=== PATIENT | female | born 1975 | race Caucasian/White ===

== ENCOUNTER 2017-11-23 05:29 | Outpatient (CLI) | payer MEDICAID ==
[~2017-11-23] VITALS: Ht 157.5 cm; Wt 95.3 kg
[~2017-11-23 05:29] MED LIST: AZIT-21 PO; AZIT250T PO; CLIN300C3 PO; NAPR-243 PO; PHEN37.53; PRD20T PO; PROP1TAB2; SULF1TAB38 PO; TRM50T PO
[2017-11-23] MEDS ORDERED: BUPR150T9 PO (10:03)
[2017-11-23] MEDS ORDERED: BUPR300T43 PO (10:03)
[2017-11-23] MEDS ORDERED: AMIT50TA3 PO (10:07)
[2017-11-23] MEDS ORDERED: POLY119P5 PO (10:17)
[2017-11-23] MEDS ORDERED: BUPR150T7 PO (10:17)
== END 2017-11-23 10:55 ==
LOC: PREOP 05:29
PROVIDERS: ATTEND Obstetrics & Gynecology
DX: Z01.818 Encounter for other preprocedural examination (principal); N39.3 Stress incontinence (female) (male); N81.10 Cystocele, unspecified; N93.8 Other specified abnormal uterine and vaginal bleeding; D64.9 Anemia, unspecified

== ENCOUNTER 2017-12-22 06:07 | Day surgery (SDC) | payer MEDICAID ==
--- NOTE | 2017-12-21 12:19 | HISTORY AND PHYSICAL ---
DATE OF SERVICE: PREOPERATIVE HISTORY AND PHYSICAL HISTORY OF PRESENT ILLNESS: The patient is a 41-year-old G4, P4 with menses occurring every two to three weeks. She has progressive stress urinary incontinence and a sensation of something falling down and out of her vagina. Exam on 10/24/2017 was consistent with fairly significant pelvic relaxation as well as an enlarged uterus. She elected to consider for definitive surgery and that has now been planned and scheduled for 12/22/2017. Intended surgery is total laparoscopic hysterectomy with bilateral salpingectomy as well as anterior and posterior vaginal repairs with Dr. Gerard to perform a pubovaginal sling and cystoscopy concurrent with my portion of the surgery. Surgical risks, complication, recovery and follow up have all been fully discussed. ALLERGIES: None. MEDICATIONS: Wellbutrin and amitriptyline. PAST SURGICAL HISTORY: Includes a LEEP procedure in 1996 a hernia repair in 1999 and a cholecystectomy in 2003. PAST OBSTETRICAL HISTORY: Includes vaginal deliveries in 1992, 1998, 2001 and 2004. GYNECOLOGICAL HISTORY: Includes a menstrual formula of 12/regular, although currently now q.2 weeks. CONTRACEPTION: None. Last Pap smear was 08/2017 was normal. FAMILY HISTORY: Significant for breast cancer in a maternal aunt. There are no other CLEARING HAND cancers. Both sides of the patient's family have diabetes and hypertension. SOCIAL HISTORY: The patient is . She works at [employer]. She smokes a pack of cigarettes a day. She denies drug use. Has had a history of drinking socially and has had a history of HPV. REVIEW OF SYSTEMS: As per the HPI. In addition, the patient has some degree of mitral valve prolapse and some early stage emphysema. She also has psychiatric issues at times with depression and anxiety that are controlled with her medication. PHYSICAL EXAMINATION: VITAL SIGNS: The patient's height is 6 feet 2 inches, weight was 207 pounds, BMI was 37. GENERAL: The patient is well-developed, well-nourished, white female in no acute distress. HEENT: Normal. NECK: Supple. No lymphadenopathy, no thyromegaly. ABDOMEN: Soft, nontender, nondistended. EXTREMITIES: Show no clubbing or cyanosis. There is no Homans sign. PELVIC: Exam is deferred to the operating room. Clinical exam show a first to second-degree cystocele, a first to second-degree rectocele and first-degree uterine prolapse that easily progresses to a second degree with Valsalva. The uterus was 8 to 10 weeks in size on the previous exam. IMPRESSION AND PLAN: Dysfunctional uterine bleeding, menorrhagia and a history of symptomatic progressive uterine vaginal prolapse with stress urinary incontinence. In addition, the patient no longer desired fertility. The patient has elected for definitive surgery in the form of total laparoscopic hysterectomy with bilateral salpingectomies as well as anterior and posterior vaginal repairs likely with an enterocele repair as well as pubovaginal sling and cystoscopy by Dr. Gerard. Again, surgical risks, complication, recovery and follow up have been fully discussed. The patient's questions have been answered and she is scheduled for the surgery on 12/22/2017. Job ID: [id number] DocumentID: [id number] Dictated Date: 12/21/2017 10:43:23 Poultry Process Worker Date: 12/21/2017 12:19:05 Dictated By: ELOISA PULLIAM MD
[~2017-12-22] VITALS: Ht 157.5 cm; Wt 95.3 kg
[~2017-12-22 06:07] MED LIST changes: +AMIT50TA3 PO; +BUPR150T7 PO; +BUPR150T9 PO; +BUPR300T43 PO; +POLY119P5 PO
[2017-12-22] MEDS: LACTATED RINGERS 1,000 ML IV PRN ×3 (06:30→10:32)
[2017-12-22] MEDS ORDERED: ceFAZolin 1,000 MG (ANCEF) VIAL ONE (06:44)
[2017-12-22] MEDS ORDERED: NS (IVPB) 50 ML ONE (06:44)
[2017-12-22 06:50] LABS: BASOPHILS # (AUTO) 0.1 10^3/uL (0.0-0.1); BASOPHILS % (AUTO) 1 % (0-10); EOSINOPHILS # (AUTO) 0.3 10^3/uL (0.0-0.3); EOSINOPHILS % (AUTO) 3 % (0-10); HEMATOCRIT 40 % (35-52); HEMOGLOBIN 14.1 G/DL (11.5-16.0); LYMPHOCYTES # (AUTO) 3.7 X 10^3 (1.0-4.0); LYMPHOCYTES % (AUTO) 43 % (12-44); MEAN CORPUSCULAR HEMOGLOBIN 33 PG (25-34); MEAN CORPUSCULAR HGB CONC 35 G/DL (32-36); MEAN CORPUSCULAR VOLUME 93 FL (80-99); MEAN PLATELET VOLUME 9.3 FL (7.4-10.4); MONOCYTES # (AUTO) 0.7 X 10^3 (0.0-1.0); MONOCYTES % (AUTO) 8 % (0-12); NEUTROPHILS % (AUTO) 46 % (42-75); PLATELET COUNT 272 10^3/uL (130-400); RED CELL DISTRIBUTION WIDTH 13.6 % (10.0-14.5); WHITE BLOOD COUNT 8.6 10^3/uL (4.3-11.0)
[2017-12-22] MEDS ORDERED: MIDAZOLAM 2 MG/2 ML (VERSED) VIAL ONE (06:51)
[2017-12-22] MEDS ORDERED: fentaNYL INJECTION 250 MCG/5 ML AMP ONE (06:51)
[2017-12-22] MEDS ORDERED: ESTRADIOL VAGINAL CREAM 42.5 GM (ESTRACE) VG ONE (06:56)
[2017-12-22] MEDS ORDERED: BUP/EPI 0.5% 1:200,000 (SENSORCAINE) 30 ML VIAL ONE (06:56)
[2017-12-22] MEDS ORDERED: ceFAZolin INJECTION 1,000 MG in NS (IVPB) 100 ML IV ONE (07:30)
[2017-12-22 07:39] VITALS: BP 104/73
--- NOTE | 2017-12-22 08:01 | Progress Note-Pre Operative ---
Pre-Operative Progress Note H&P Reviewed The H&P was reviewed, patient examined and no changes noted. Date Seen by Provider: Dec 22, 2017 Time Seen by Provider: 08:01 Date H&P Reviewed: Dec 22, 2017 Time H&P Reviewed: 08: Pre-Operative Diagnosis: Dysfunctional uterine bleeding/uterovaginal prolapse/ stress urinary inconti ELOISA PULLIAM MD Dec 22, 2017 8:01 am
--- NOTE | 2017-12-22 08:02 | Progress Note-Post Operative ---
Post-Operative Progess Note Surgeon (s)/Assistant Drafter (s) Surgeon ELOISA PULLIAM MD Assistant Drafter: Tammi Beard Pre-Operative Diagnosis Dysfunctional uterine bleeding/uterovaginal prolapse/stress urinary inconti Post-Operative Diagnosis Same with pathology pending Procedure & Operative Findings Date of Procedure 12/22/17 Procedure Performed/Findings TLH with bilateral salpingectomy as well as anterior and posterior vaginal repair with enterocele repair and with Dr. Swenson performing a pubovaginal sling and cystoscopy Anesthesia Type GETA Estimated Blood Loss Estimated blood loss (mL): 300cc Specimens/Packing Specimens Removed Uterus and fallopian tubes Packing: Kerlix to the vagina ELOISA PULLIAM MD Dec 22, 2017 08:02
[2017-12-22] MEDS ORDERED: PATIENT MAY USE OWN MEDS, ALL MC SCH ×2 (08:15→18:30)
[2017-12-22] MEDS ORDERED: BENZOCAINE/MENTHOL (DERMOPLAST) 56 ML CAN TP PRN (08:15)
[2017-12-22] MEDS ORDERED: ESTROGENS CONJ IV 25 MG/5 ML (PREMARIN) VIAL IVP ONE (08:15)
[2017-12-22] MEDS ORDERED: ONDANSETRON 4 MG/2 ML (SDV) Z0FRAN IVP PRN ×2 (08:15→10:30)
[2017-12-22] MEDS ORDERED: KETOROLAC 30 MG/ML VIAL IVP SCH (08:15)
[2017-12-22] MEDS ORDERED: WATER (STERILE) FOR INJ 10 ML BTL INJ ONE (08:15)
[2017-12-22] MEDS ORDERED: PROMETHAZINE INJ 25 MG/ML (PHENERGAN) AMP IM PRN (08:15)
[2017-12-22] MEDS ORDERED: MEPERIDINE (DEMEROL) INJ 100 MG/ML IM PRN (08:15)
--- NOTE | 2017-12-22 08:49 | Progress Note-Post Operative ---
Post-Operative Progess Note Surgeon (s)/Software Solutions Architect (s) Surgeon MADI LEBRON MD Software Solutions Architect: HERACLIO Pre-Operative Diagnosis DALY Post-Operative Diagnosis SAME Procedure & Operative Findings Date of Procedure 12/22/17 Procedure Performed/Findings PVS AND CYSTO Anesthesia Type GENERAL Estimated Blood Loss Estimated blood loss (mL): NEGLIGIBLE Specimens/Packing Specimens Removed N/A Packing: Kerlix to the vagina MADI LEBRON MD Dec 22, 2017 8:49 am
[2017-12-22] MEDS ORDERED: ROCURONIUM 10 MG/ML 5 ML SYRINGE IV ONE (09:41)
[2017-12-22] MEDS ORDERED: proPOfol 200 MG/20 ML (DIPRIVAN) VIAL IV ONE (09:41)
[2017-12-22] MEDS ORDERED: LIDOCAINE JELLY 2% (XYLOCAINE) 5 ML TUBE ONE (09:41)
[2017-12-22] MEDS ORDERED: SEVOFLURANE (ULTANE) 15 ML INHAL SOLN ONE (09:41)
[2017-12-22] MEDS ORDERED: LIDOCAINE PF 2% 5 ML (XYLOCAINE) VIAL ONE (09:41)
[2017-12-22] MEDS ORDERED: morphine INJ 10 MG/ML 1ML (SYR OR VIAL) ONE (10:03)
[2017-12-22] MEDS ORDERED: KETOROLAC 30 MG/ML VIAL ONE (10:11)
[2017-12-22] MEDS ORDERED: MEPERIDINE (DEMEROL) INJ 50 MG/ML ONE (10:12)
[2017-12-22] MEDS: MEPERIDINE (DEMEROL) INJ 50 MG/ML IVP PRN ×2 (10:21→10:30)
[2017-12-22] MEDS: morphine INJ 10 MG/ML 1ML (SYR OR VIAL) IVP PRN ×2 (10:41→10:58)
--- NOTE | 2017-12-22 12:01 | Anesthesia-General Post-Op ---
General Patient Condition Mental Status/LOC: Same as Preop Cardiovascular: Satisfactory Nausea/Vomiting: Absent Respiratory: Satisfactory Pain: Controlled Complications: Absent Post Op Complications Complications None Follow Up Care/Instructions Patient Instructions None needed. Anesthesia/Patient Condition Patient Condition Patient is doing well, no complaints, stable vital signs, no apparent adverse anesthesia problems. No complications reported per nursing. RADHA CARDONA CRNA Dec 22, 2017 12:01
[2017-12-22 12:12] VITALS: BP 118/77
[2017-12-22] MEDS ORDERED: oxyCODONE/APAP 10/325MG (PERCOCET 10) TABLET PO ONE (12:16)
[2017-12-22] MEDS: oxyCODONE/APAP 10/325MG (PERCOCET 10) TABLET PO PRN ×3 (12:31→20:41)
--- NOTE | 2017-12-22 13:12 | OPERATIVE REPORT ---
DATE OF SERVICE: 12/22/2017 PREOPERATIVE DIAGNOSIS: On my part, stress urinary incontinence. POSTOPERATIVE DIAGNOSIS: On my part, stress urinary incontinence. OPERATION PERFORMED: Pubovaginal sling and cystoscopy. SURGEON: Madi Lebron MD. OYSTER GRADER: Herve Reinoso MD. ANESTHESIA: General. COMPLICATIONS: None. PROCEDURE: Under satisfactory general anesthesia and after Dr. Reinoso performed the first part of his surgery that he will dictate, I inserted a Salas catheter draining clear urine. I passed the Solyx device on both sides using the described technique. The sling was sitting nicely under the mid urethra with no tension and no twist and passage of a curved hemostat easily under it. The catheter was removed and cystoscopy was performed to confirm the integrity of the bladder, ureters and urethra with no foreign body. The bladder was left half full to perform a manual Valsalva maneuver after removing of the cystoscope and it was negative. Catheter was reinserted and Dr. Reinoso proceeded with the rest of his surgery that he will dictate. ESTIMATED BLOOD LOSS ON MY PART: Negligible. Job ID: [id number] DocumentID: [id number] Dictated Date: 12/22/2017 09:45:29 Casting Machine Control Board Operator Date: 12/22/2017 13:12:02 Dictated By: MADI LEBRON MD
--- NOTE | 2017-12-22 13:40 | OPERATIVE REPORT ---
DATE OF SERVICE: 12/22/2017 SURGEON: Herve Reionso MD PREOPERATIVE DIAGNOSES: Dysfunctional uterine bleeding, uterine prolapse and stress urinary incontinence. POSTOPERATIVE DIAGNOSES: Dysfunctional uterine bleeding, uterine prolapse and stress urinary incontinence. OPERATIVE PROCEDURE: Total laparoscopic hysterectomy with bilateral salpingectomies as well as anterior and posterior vaginal repairs with enterocele repair and with Dr. Gerard performing a pubovaginal sling and cystoscopy. OPERATIVE DESCRIPTION: With the patient in the supine position under satisfactory general anesthesia, she was repositioned in the dorsal lithotomy position in the [facility] and prepped and draped in the usual fashion for abdominal and vaginal surgery. Salas catheter was placed in the urinary bladder. A weighted speculum placed in posterior fornix of vagina, cervix exposed and grasped anteriorly with single tooth tenaculum. Uterus was sounded to 12.5 cm with uterine sound. The cervix then serially dilated with Danilo dilators to accommodate a Tere 2 manipulator, which was placed using a 6 mm x 8 cm uterine probe and a 35 mm colpotomy ring. Sutures of #1 Vicryl placed at 3 and 9 o'clock position of the cervix to affix the uterus to the manipulator. The patient was brought in low dorsal lithotomy position. The abdomen exposed. The tenaculum and speculum had been removed from the vagina. A 12 mm incision made 5 cm superior to the umbilicus. Veress needle was placed through the stab wound in the base of the umbilicus. Correct placement confirmed with a water drop test. The abdomen was insufflated with 2.4 liters of carbon dioxide. The Veress needle was removed and a 12 mm Optiview laparoscopic port placed through the upper midline incision. The laparoscope was introduced under direct vision. The abdominal wall was transilluminated. Ports of 8 mm were placed through incisions of those sizes at 9 cm lateral to the umbilicus on each side. The incision sites were all infiltrated with 0.25% Marcaine with epinephrine prior to incision. The instrument manipulator was advanced on the patient and docked. The operative instruments were placed in the right and left lateral ports and I retired to the console. Using a vessel sealer on the right and a bipolar fenestrated grasper on the left, the pelvis was first examined. Both fallopian tubes appeared normal as were the ovaries. The uterus was somewhat large and mottled in appearance consistent with adenomyosis. Both ureters were seemed to peristalse. The laparoscope was rotated. The appendix was identified. It was a normal vermiform appendix. Laparoscope was brought back to the pelvis and the intended surgery was initiated. The right fallopian tube was grasped and elevated. The mesosalpinx was clamped, cauterized and divided with the vessel sealer. This continued stepwise across to the utero-ovarian pedicle. The utero-ovarian pedicle was then divided in the same manner as was the round ligament, the broad ligaments and eventually down onto the cardinal ligament. Same procedure performed on the left. This allowed for both tubes to be removed with the uterus and conserving both ovaries. Again, the ureters were seen peristalsing away from the areas of dissection. The anterior lower uterine segment peritoneum was exposed using a monopolar shear. The peritoneum was divided on the lower uterine segment and the peritoneum was dissected down off the lower uterine segment, taking the bladder with it exposing the anterior vaginal wall over the colpotomy ring. Colpotomy incision was made at the 12 o'clock position and continued circumferentially until the entire colpotomy ring was exposed. The uterus with the fallopian tubes still attached was then extracted through the vagina. The vaginal cuff was closed with two sutures of V-Loc barbed suture starting first on the right angle and continued to the midportion of the cuff and then from the left angle to the midportion of the cuff including the ligation of the uterine vessel pedicles with the initiation of those stitches. Again, both ureters were seemed to peristalse and were away from the areas of stitch placement. The pelvis was irrigated and examined for hemostasis. That being complete, the procedure was terminated. The operative instruments were removed under direct vision as were the ports. The patient was brought out of Trendelenburg. The abdomen was evacuated and insufflating gas and the incision was closed with alie after closing the fascia at the supraumbilical incision with a [id number] suture of 2-0 Vicryl. The patient was repositioned now in the dorsal lithotomy position for the vaginal repairs. The anterior repair was initiated by placing Ovidio clamps on the anterior vaginal wall just distal to the vaginal cuff. The vaginal wall was opened in the midline with Metzenbaum scissors. The vaginal wall was dissected off the muscularis of the vagina back to the pubic rami bilaterally. Three sutures of 2-0 Vicryl were placed plicating the endopelvic fascia and the bladder wall elevating the bladder and lengthening the urethra. Dr. Gerard assumed care of the patient at this point, I remained to assist. Dr. Gerard performed a pubovaginal sling and cystoscopy. I remained to assist. He will dictate his portion of the procedure. Upon completion of Dr. Gerard's portion of procedure, he turned care back over to me for the patient. The redundant anterior vaginal muscularis mucosa was removed sharply. Vaginal wall was closed with a running lock suture of 3-0 Vicryl Rapide. Good support was evident and good hemostasis was affected. The posterior repair was now performed by placing Ovidio clamps on the perineum and the hymenal ring at 5 and 7 o'clock position. The inverted triangle of skin removed from the perineal body and an upright triangle from the posterior vaginal floor. The rectovaginal space was entered sharply and dissected bluntly to the apex of the vagina. Oxbow retractor was placed anterior and Terrell retractor posteriorly. There was an enterocele at the apex. It was reduced and plicated with 2-0 Vicryl pursestring suture. The rectovaginal space was then obliterated with additional sutures of 2-0 Vicryl and the perineal body was restored with sutures of 2-0 Vicryl as well. Redundant posterior vaginal muscularis mucosa was removed sharply. The vaginal wall was closed with a running locked suture of 3-0 Vicryl Rapide. Good support was evident and good hemostasis was achieved. A digital rectal exam confirmed. No stricture or stenosis of the rectum and no sutures into or through the rectal mucosa. The vagina was now filled with an Estrace vaginal cream and a pack of Kerlix gauze was placed. A Salas catheter was left to dependent drainage with Dr. Gerard and placed upon completion of this portion of the surgery. Sponge and needle counts were correct at the end of the procedure. Estimated blood loss was around 300 mL, 90% of that or more came from the vaginal repairs. The patient tolerated the procedure well, was uneventfully awakened from general anesthesia and transferred to the recovery room in stable condition. Job ID: [id number] DocumentID: [id number] Dictated Date: 12/22/2017 10:10:25 Consumer Studies Professor Date: 12/22/2017 13:40:01 Dictated By: HERVE REINOSO MD
[2017-12-22] MEDS ORDERED: NICOTINE 21 MG (NICODERM) PATCH TD NR (15:30)
[2017-12-22 15:54] VITALS: BP 95/66
[2017-12-22] MEDS: KETOROLAC 30 MG/ML VIAL IVP SCH ×2 (16:25→22:59)
[2017-12-22] MEDS: D5 LR IV SOLUTION 1,000 ML IV SCH (16:27)
[2017-12-22] MEDS ORDERED: PATIENT MAY USE OWN MED,SINGLE MED PO SCH ×3 (18:45)
[2017-12-22 20:41] VITALS: BP 104/61
[2017-12-22] MEDS ORDERED: AMITRIPTYLINE 50 MG (ELAVIL) TAB PO SCH (21:00)
[2017-12-23 00:33] VITALS: BP 97/54
[2017-12-23] MEDS: D5 LR IV SOLUTION 1,000 ML IV SCH (00:33)
[2017-12-23 03:45] VITALS: BP 94/52
[2017-12-23] MEDS: oxyCODONE/APAP 10/325MG (PERCOCET 10) TABLET PO PRN ×3 (03:57→14:06)
[2017-12-23] MEDS ORDERED: diphenhydrAMINE 25 MG TAB (BENADRYL) PO PRN (04:00)
[2017-12-23] MEDS: KETOROLAC 30 MG/ML VIAL IVP SCH (06:39)
--- NOTE | 2017-12-23 08:13 | Progress Note-Standard ---
Standard Progress Note Progress Notes/Assess & Plan Date Seen by Provider: Dec 23, 2017 Time Seen by Provider: 08:12 Progress/Assessment & Plan This patient is without complaint. She is ambulating, already by mouth well, has good pain control. Patient has not voided yet and bladder trial is ongoing. Vital Signs Date Time Temp Pulse Resp B/P (MAP) Pulse Ox O2 Delivery O2 Flow Rate FiO2 12/23/17 03:45 99.2 83 18 94/52 (66) 96 12/23/17 00:33 97.4 80 16 97/54 (68) 96 Room Air 12/22/17 20:41 99.0 86 16 104/61 (75) 95 Room Air 12/22/17 15:54 97.6 77 16 95/66 (76) 94 Room Air 12/22/17 13:16 98 Non Rebreather 2.00 12/22/17 12:12 97.8 76 16 118/77 (91) 100 Simple Mask 3.00 I & O 12/23/17 07:00 Intake Total 2516 ml Output Total 3925 ml Balance -1409 ml Vital signs are stable. Patient is afebrile. The abdomen is benign. The surgical incision sites are clean and dry. Extremities show no clubbing or cyanosis. There is no Homans sign. Assessment and plan postoperative day number 1 doing well. Plan is for discharge home when patient is recovered adequately Final Diagnosis Uterine prolapse ELOISA PULLIAM MD Dec 23, 2017 8:13 am
--- NOTE | 2017-12-23 08:15 | Discharge Instructions ---
Discharge Instructions Discharge Medications New, Converted or Re-Newed RX: RX on Chart Patient Instructions Patient Instructions: As directed Return to The Hospital For: As directed Activity & Diet Discharge Diet: No Restrictions Activity as Tolerated: No Orders-Post D/C & Referrals Follow Up Appt: Return to clinic on Monday, December 25, 2017 at 930 a.m. for staple removal Call to make follow up appt. for patient in 4 weeks. Activity: Rest for 24 hours, than as tolerated. Wound Care: May remove Band-Aid tomorrow. Replace as desired. Keep incisions clean and dry. Wash daily with soap and water. Please call in RX to patient pharmacy. Diet: As tolerated-Clear Liquids only if nauseated. Tomorrow, may shower or tub bathe as desired. No driving for 24 hours, no alcoholic beverages for 24 hours, and nothing per vagina (no tampons, douching, or intercourse) for 8 weeks. Patient to return to the clinic as soon as possible for: Temperature greater than 101F, Severe Pain, Foul discharge from incision or vagina, Excessive Bleeding (more than a period). ELOISA PULLIAM MD Dec 23, 2017 8:15 am
[2017-12-23] MEDS ORDERED: DOCU100C37 PO (08:16)
[2017-12-23] MEDS ORDERED: IBUP-1780 PO (08:16)
[2017-12-23] MEDS ORDERED: OXYC-465 PO (08:16)
[2017-12-23 08:44] VITALS: BP 90/56
[2017-12-23] MEDS ORDERED: buPROPion XL 150 MG (WELLBUTRIN XL) NON-FORM PO SCH (09:00)
[2017-12-23] MEDS ORDERED: NON-FORMULARY MEDICATION 1 EA EA (Bupropion HCl (Wellbutrin Xl) 300 MG) PO SCH (09:00)
[2017-12-23] MEDS ORDERED: DOCUSATE SODIUM 100 MG (COLACE) CAP PO SCH (09:00)
[2017-12-23] MEDS ORDERED: IBUPROFEN 800 MG (MOTRIN) TAB PO SCH (11:00)
[2017-12-23] MEDS ORDERED: INFLUENZA TRIvalent 2017-2018 0.5 ML/45 MCG SYR IM ONE (11:30)
--- NOTE | 2017-12-23 11:30 | Progress Note-Urology ---
Progress Note-Urology Progress Notes/Assess & Plan Progress/Assessment & Plan DOING VERY WELL. NO COMPLAINTS. VOIDING WELL, NO LEAKAGE, PVR 42CC. HOME WITH INSTRUCTIONS AND F/U MONDAY 01/08 1PM Final Diagnosis INCONTINENCE MADI LEBRON MD Dec 23, 2017 11:30 am
[2017-12-23 14:02] VITALS: BP 102/70
[2017-12-23] MEDS ORDERED: PATCH REMOVAL TP SCH (15:29)
== END 2017-12-23 15:25 | disposition home or self-care (01) ==
LOC: SDC 06:07 → WS 11:26 → SDC 12-23 15:25
PROVIDERS: ATTEND Obstetrics & Gynecology
DX: N93.8 Other specified abnormal uterine and vaginal bleeding (principal); N81.4 Uterovaginal prolapse, unspecified; N39.3 Stress incontinence (female) (male); N72 Inflammatory disease of cervix uteri; N88.8 Other specified noninflammatory disorders of cervix uteri; N80.0 Endometriosis of uterus; N83.8 Other noninflammatory disorders of ovary, fallopian tube and broad ligament; F17.210 Nicotine dependence, cigarettes, uncomplicated
CPT/HCPCS: 36415; 84703; 85025; 86850; 86900; 86901; 87081; 94664

== ENCOUNTER 2018-01-23 10:26 | Outpatient (RCR) | payer MEDICAID ==
[~2018-01-23 10:26] MED LIST changes: +DOCU100C37 PO; +IBUP-1780 PO; +OXYC-465 PO
== END 2018-04-23 | disposition home or self-care (01) ==
LOC: CARD 10:26
PROVIDERS: ATTEND Internal Medicine Interventional Cardiology
DX: R00.2 Palpitations (principal); F17.200 Nicotine dependence, unspecified, uncomplicated; E66.9 Obesity, unspecified; Z86.79 Personal history of other diseases of the circulatory system
CPT/HCPCS: 93225; 93226

== ENCOUNTER 2018-02-19 10:45 | Outpatient (RCR) | payer MEDICAID | END 2018-04-25 | disposition home or self-care (01) | LOC: CARD 10:45 | PROVIDERS: ATTEND Internal Medicine Interventional Cardiology | DX: R00.2 Palpitations (principal); E66.9 Obesity, unspecified; Z86.79 Personal history of other diseases of the circulatory system; F17.200 Nicotine dependence, unspecified, uncomplicated | CPT/HCPCS: 93270 ==

== ENCOUNTER 2020-07-05 12:49 | Emergency (ER) | payer SELFPAY ==
[~2020-07-05] VITALS: Ht 160 cm; Wt 97.5 kg
[~2020-07-05 12:49] MED LIST changes: -OXYC-465 PO; +OXYC-556 PO
[2020-07-05 13:08] LABS: BILIRUBIN,URINE NEGATIVE (NEGATIVE); CLARITY,URINE CLEAR; COLOR,URINE YELLOW; GLUCOSE, URINE (UA) NEGATIVE (NEGATIVE); KETONES,URINE NEGATIVE (NEGATIVE); LEUKOCYTE ESTERASE ,URINE NEGATIVE (NEGATIVE); NITRITE,URINE NEGATIVE (NEGATIVE); PH,URINE 5.5 (5-9); PROTEIN,URINE NEGATIVE (NEGATIVE)
--- NOTE | 2020-07-05 13:19 | ED Abdominal Pain ---
General Chief Complaint: Abdominal/GI Problems Stated Complaint: L SIDE / BACK PAIN Nursing Triage Note: PT AMBULATE TO ROOM 03 WITH C/O LEFT SIDE ABD PAIN STARTING X25 MINS AGO WHEN SHE WOKE UP. PT DENIES N/V/D. PT DENIES TAKING ANYTHING FOR THE PAIN BECAUSE SHE DID NOT "KNOW WHAT THIS IS". Sepsis Screen: No Definite Risk Source of Information: Patient Exam Limitations: No Limitations History of Present Illness Date Seen by Provider: Jul 05, 2020 Time Seen by Provider: 12:46 Initial Comments Patient presents ER by private conveyance from home with chief complaint that about half an hour before arrival she started experiencing some pain woke her from sleep in her left lower quadrant abdomen and around the inguinal ligament. The pain radiates around her left flank and upper left back. It's worse with movement and comes and goes. She says it feels burning in sensation. She complains that she has frequent urge to urinate but no painful urination or blood in the urine. She's not having any fever or nausea. She hasn't the past had a hysterectomy and an inguinal hernia repair as well as a bladder surgery. She does not have a history of kidney stones or diverticulitis. No diarrhea or bloody stools. She rates the pain as an 8 out of 10. Allergies and Home Medications Allergies Coded Allergies: NKANo Known Allergies (Unverified Allergy, Mild, 02/08/09) Home Medications Amitriptyline HCl 50 Mg Tablet, 50 MG PO HS, (Reported) Bupropion HCl 300 Mg Tab.er.24h, 300 MG PO DAILY, (Reported) Bupropion HCl 150 Mg Tab.er.24h, 150 MG PO DAILY, (Reported) Docusate Sodium 100 Mg Capsule, 100 MG PO BID Prescribed by: ELOISA LEIGH on 12/23/17 08 Ibuprofen 800 Mg Tablet, 800 MG PO Q6H Prescribed by: ELOISA LEIGH on 12/23/17 0816 Oxycodone HCl/Acetaminophen 1 Each Tablet, 1-2 TAB PO Q4HR PRN for PAIN-MODERATE TO SEVERE Prescribed by: ELOISA LEIGH on 12/23/17 08 Polyethylene Glycol 3350 119 Gm Powder, 17 GM PO DAILY, (Reported) Patient Home Medication List Home Medication List Reviewed: Yes Review of Systems Review of Systems Constitutional: No chills, No diaphoresis, No fever EENTM: No Blurred Vision, No Double Vision Respiratory: Denies Cough, Denies Shortness of Air Cardiovascular: Denies Chest Pain, Denies Edema Gastrointestinal: See HPI, Abdominal Pain; Denies Constipated, Denies Diarrhea, Denies Nausea Genitourinary: Denies Burning, Denies Discharge; Urgency Musculoskeletal: No back pain, No joint swelling Psychiatric/Neurological: Denies Anxiety, Denies Depressed All Other Systems Reviewed Negative Unless Noted: Yes Past Oppmzyl-Rigjuz-Zjugut Hx Patient Social History Alcohol Use: Denies Use Recreational Drug Use: Yes Drug of Choice: POT Smoking Status: Current Everyday Smoker Type Used: Cigarettes 2nd Hand Smoke Exposure: Yes Recent Foreign Travel: No Contact w/Someone Who Travel: No Recent Infectious Disease Expo: No Recent Hopitalizations: No Physical Abuse: No Sexual Abuse: No Mistreated: No Fear: No Seasonal Allergies Seasonal Allergies: No Past Medical History Surgeries: Yes (HERNIA REAPAIR, LEEP) Gallbladder Respiratory: No Cardiac: Yes (MVP) Heart Murmur Neurological: No Reproductive Disorders: Yes (DUI) Sexually Transmitted Disease: Yes (HPV) Gastrointestinal: Yes Chronic Constipation Musculoskeletal: No Endocrine: No Cancer: No Psychosocial: Yes Anxiety, Depression Integumentary: No Blood Disorders: No Physical Exam Vital Signs Vital Signs - First Documented 07/05/20 12:59 Temp 36.7 Pulse 83 Resp 17 B/P (MAP) 134/85 (101) O2 Delivery Room Air Capillary Refill : Less Than 3 Seconds Height/Weight/BMI Height: 5'2.00" Weight: 210lbs. 0.0oz. 95.690173ps; 38.00 BMI Method:Stated General Appearance: mild distress, obese HEENT: PERRL/EOMI, pharynx normal Neck: full range of motion, normal inspection Respiratory: lungs clear, normal breath sounds, no respiratory distress, no accessory muscle use Cardiovascular: normal peripheral pulses, regular rate, rhythm Gastrointestinal: no organomegaly (left lower quadrant and left flank), tenderness Extremities: no pedal edema, normal capillary refill Back: no vertebral tenderness; No CVA tenderness (R); CVA tenderness (L) Neurologic/Psychiatric: alert, oriented x 3 Skin: normal color, warm/dry Progress/Results/Core Measures Results/Orders Lab Results Laboratory Tests Test 07/05/20 12:54 07/05/20 13:08 Range/Units Urine Color YELLOW Urine Clarity CLEAR Urine pH 5.5 5-9 Urine Specific [place] 1.025 H 1.016-1.022 Urine Protein NEGATIVE NEGATIVE Urine Glucose (UA) NEGATIVE NEGATIVE Urine Ketones NEGATIVE NEGATIVE Urine Nitrite NEGATIVE NEGATIVE Urine Bilirubin NEGATIVE NEGATIVE Urine Urobilinogen 0.2 < = 1.0 MG/DL Urine Leukocyte Esterase NEGATIVE NEGATIVE Urine RBC (Auto) NEGATIVE NEGATIVE Urine RBC NONE /HPF Urine WBC NONE /HPF Urine Squamous Epithelial Cells 0-2 /HPF Urine Crystals NONE /LPF Urine Bacteria TRACE /HPF Urine Casts NONE /LPF Urine Mucus SMALL H /LPF Urine Culture Indicated NO White Blood Count 9.5 4.3-11.0 10^3/uL Red Blood Count 4.73 3.80-5.11 10^6/uL Hemoglobin 15.4 11.5-16.0 g/dL Hematocrit 44 35-52 % Mean Corpuscular Volume 92 80-99 fL Mean Corpuscular Hemoglobin 33 25-34 pg Mean Corpuscular Hemoglobin Concent 35 32-36 g/dL Red Cell Distribution Width 13.0 10.0-14.5 % Platelet Count 310 130-400 10^3/uL Mean Platelet Volume 9.6 9.0-12.2 fL Immature Granulocyte % (Auto) 0 % Neutrophils (%) (Auto) 55 42-75 % Lymphocytes (%) (Auto) 34 12-44 % Monocytes (%) (Auto) 7 0-12 % Eosinophils (%) (Auto) 3 0-10 % Basophils (%) (Auto) 1 0-10 % Neutrophils # (Auto) 5.2 1.8-7.8 10^3/uL Lymphocytes # (Auto) 3.3 1.0-4.0 10^3/uL Monocytes # (Auto) 0.6 0.0-1.0 10^3/uL Eosinophils # (Auto) 0.3 0.0-0.3 10^3/uL Basophils # (Auto) 0.1 0.0-0.1 10^3/uL Immature Granulocyte # (Auto) 0.0 0.0-0.1 10^3/uL Sodium Level 138 135-145 MMOL/L Potassium Level 4.1 3.6-5.0 MMOL/L Chloride Level 107 98-107 MMOL/L Carbon Dioxide Level 21 21-32 MMOL/L Anion Gap 10 5-14 MMOL/L Blood Urea Nitrogen 7 7-18 MG/DL Creatinine 0.74 0.60-1.30 MG/DL Estimat Glomerular Filtration Rate > 60 BUN/Creatinine Ratio 9 Glucose Level 127 H 70-105 MG/DL Calcium Level 8.8 8.5-10.1 MG/DL Corrected Calcium 8.9 8.5-10.1 MG/DL Total Bilirubin 0.7 0.1-1.0 MG/DL Aspartate Amino Transf (AST/SGOT) 12 5-34 U/L Alanine Aminotransferase (ALT/SGPT) 15 0-55 U/L Alkaline Phosphatase 73 40-136 U/L Total Protein 6.9 6.4-8.2 GM/DL Albumin 3.9 3.2-4.5 GM/DL My Orders Orders - KRISTINE LUA Ua Culture If Indicated (07/05/20 12:50) Urine Bedside (07/05/20 12:50) Ct Abd/Pelvis Wo(Kidney Stone) (07/05/20 13:11) Cbc With Automated Diff (07/05/20 13:16) Comprehensive Metabolic Panel (07/05/20 13:16) Ketorolac Injection (Toradol Injection) (07/05/20 13:30) Medications Given in ED Current Medications Medications Dose Ordered Sig/Charlene Route Start Time Stop Time Status Last Admin Dose Admin Ketorolac Tromethamine 30 mg ONCE ONCE IVP 07/05/20 13:30 07/05/20 13:31 DC 07/05/20 13:45 30 MG Vital Signs/I&O 07/05/20 12:59 Temp 36.7 Pulse 83 Resp 17 B/P (MAP) 134/85 (101) O2 Delivery Room Air Blood Pressure Mean: 101 Progress Progress Note : Time: 13:19 Progress Note Basic labs, urinalysis and a CT without IV contrast looking for kidney stones versus pyelonephritis versus less likely gynecologic or diverticulitis. Diagnostic Imaging Diagonstic Imaging: CT (without IV contrast kidney stone study) Plain Films/CT/US/NM/MRI: abdomen, pelvis Comments NAME: JAREN SMITH [facility] REC#: [id number] PT STATUS: REG ER : 1975 PHYSICIAN: KRISTINE LUA MD ADMIT DATE: 07/05/20/ER Draft Date of Exam:07/05/20 CT ABD/PELVIS WO(KIDNEY STONE) PROCEDURE: CT urinary tract, rule out kidney stone. TECHNIQUE: Multiple contiguous axial images were obtained through the abdomen and pelvis without the use of intravenous contrast. Auto Exposure Controls were utilized during the CT exam to meet ALARA standards for radiation dose reduction. INDICATION: Left flank pain COMPARISON: 12/09/2008 FINDINGS: Mild left basilar scarring. Cholecystectomy. The unenhanced liver, spleen, adrenal glands, and pancreas are unremarkable. The right kidney and right ureter are unremarkable. Punctate 2 mm left renal calculus. No hydroureteronephrosis. The left ureter is unremarkable. No interval dilatation of the abdominal aorta. The appendix is unremarkable. The urinary bladder is predominantly decompressed, therefore not well evaluated. The uterus is not visualized, likely surgically absent. 5.6 x 4.3 cm soft tissue density involving the left ovary/left adnexa, asymmetrically enlarged compared to the right and having increased in size when compared to prior exam. No bowel obstruction or pneumatosis. Repair of a prior umbilical hernia. No significant adenopathy, free air, or free fluid within the abdomen or pelvis. No acute osseous abnormality. IMPRESSION: 5.6 cm left adnexal soft tissue density. This has increased since the prior examination. This could relate to an ovarian mass or even ovarian torsion given increase in size. Hemorrhagic cyst associated with the left ovary would be the initial consideration. Pelvic ultrasound is recommended for further evaluation. Punctate nonobstructing 2 mm left renal calculus. Cholecystectomy. Dictated on workstation # [id number] Dict: 07/05/20 1331 Trans: 07/05/20 1347 [facility] [id number] Interpreted by: CHAPO RICHTER MD Electronically signed by: Reviewed: Reviewed by Me Departure Impression Primary Impression: Ovarian mass, left Additional Impression: Ovarian torsion Disposition: 02 XFER SHT-TRM HOSP (er to er) Condition: Stable Transfer Transfer Reason: Exceeds level of care (No US) Transfer Progress Notes Roni Osman. Transfer Facility: [facility] Method of Transfer: Private Vehicle Departure-Patient Inst. Referrals: [facility] (PCP/Family) Primary Care Physician KRISTINE LUA Jul 05, 2020 13:19
[2020-07-05 13:20] LABS: BASOPHILS # (AUTO) 0.1 10^3/uL (0.0-0.1); BASOPHILS % (AUTO) 1 % (0-10); EOSINOPHILS # (AUTO) 0.3 10^3/uL (0.0-0.3); EOSINOPHILS % (AUTO) 3 % (0-10); HEMATOCRIT 44 % (35-52); HEMOGLOBIN 15.4 g/dL (11.5-16.0); LYMPHOCYTES # (AUTO) 3.3 10^3/uL (1.0-4.0); LYMPHOCYTES % (AUTO) 34 % (12-44); MEAN CORPUSCULAR HEMOGLOBIN 33 pg (25-34); MEAN CORPUSCULAR HGB CONC 35 g/dL (32-36); MEAN CORPUSCULAR VOLUME 92 fL (80-99); MEAN PLATELET VOLUME 9.6 fL (9.0-12.2); MONOCYTES # (AUTO) 0.6 10^3/uL (0.0-1.0); MONOCYTES % (AUTO) 7 % (0-12); NEUTROPHILS # (AUTO) 5.2 10^3/uL (1.8-7.8); NEUTROPHILS % (AUTO) 55 % (42-75); PLATELET COUNT 310 10^3/uL (130-400); WHITE BLOOD COUNT 9.5 10^3/uL (4.3-11.0)
[2020-07-05 13:23] LABS: BACTERIA,URINE TRACE /HPF; SQUAMOUS EPITHELIAL CELL,UR 0-2 /HPF
[2020-07-05 13:24] LABS: ALBUMIN 3.9 GM/DL (3.2-4.5)
[2020-07-05 13:25] LABS: CHLORIDE 107 MMOL/L (98-107); POTASSIUM 4.1 MMOL/L (3.6-5.0); SODIUM 138 MMOL/L (135-145)
[2020-07-05 13:26] LABS: CALCIUM 8.8 MG/DL (8.5-10.1)
[2020-07-05 13:27] LABS: GLUCOSE 127 MG/DL (70-105); TOTAL PROTEIN 6.9 GM/DL (6.4-8.2)
[2020-07-05 13:28] LABS: CARBON DIOXIDE 21 MMOL/L (21-32)
[2020-07-05 13:29] LABS: BILIRUBIN,TOTAL 0.7 MG/DL (0.1-1.0)
[2020-07-05 13:30] LABS: ALKALINE PHOSPHATASE 73 U/L (40-136)
[2020-07-05] MEDS ORDERED: KETOROLAC 30 MG/ML VIAL IVP ONE (13:30)
[2020-07-05 13:31] LABS: CREATININE SERUM 0.74 MG/DL (0.60-1.30); GFR ESTIMATED > 60
[2020-07-05 13:32] LABS: BUN/CREATININE RATIO 9
[2020-07-05 13:33] LABS: ALANINE AMINOTRANSFERASE 15 U/L (0-55)
--- NOTE | 2020-07-05 13:49 | Diagnostic Imaging Report ---
PROCEDURE: CT urinary tract, rule out kidney stone. TECHNIQUE: Multiple contiguous axial images were obtained through the abdomen and pelvis without the use of intravenous contrast. Auto Exposure Controls were utilized during the CT exam to meet ALARA standards for radiation dose reduction. INDICATION: Left flank pain COMPARISON: 12/09/2008 FINDINGS: Mild left basilar scarring. Cholecystectomy. The unenhanced liver, spleen, adrenal glands, and pancreas are unremarkable. The right kidney and right ureter are unremarkable. Punctate 2 mm left renal calculus. No hydroureteronephrosis. The left ureter is unremarkable. No interval dilatation of the abdominal aorta. The appendix is unremarkable. The urinary bladder is predominantly decompressed, therefore not well evaluated. The uterus is not visualized, likely surgically absent. 5.6 x 4.3 cm soft tissue density involving the left ovary/left adnexa, asymmetrically enlarged compared to the right and having increased in size when compared to prior exam. No bowel obstruction or pneumatosis. Repair of a prior umbilical hernia. No significant adenopathy, free air, or free fluid within the abdomen or pelvis. No acute osseous abnormality. IMPRESSION: 5.6 cm left adnexal soft tissue density. This has increased since the prior examination. This could relate to an ovarian mass or even ovarian torsion given increase in size. Hemorrhagic cyst associated with the left ovary would be the initial consideration. Pelvic ultrasound is recommended for further evaluation. Punctate nonobstructing 2 mm left renal calculus. Cholecystectomy. Dictated by: Dictated on workstation # [id number]
--- NOTE | 2020-07-05 14:30 | NUR ---
PT TRANSFERRED POV TO [facility] ED IN [place], [place]. PT TRANSFERRED POV PER PROVIDER. PT INSTRUCTED TO TAKE PACKET WITH HER AND TO GIVE TO ED UPON ARRIVAL. PT VOICED UNDERSTANDING AND STATES THAT SHE WILL HEAD DIRECTLY TO [facility] ED.
[2020-07-05 14:35] VITALS: BP 144/76
== END 2020-07-05 14:34 | disposition short-term general hospital (02) ==
LOC: EDUNIT# 12:49 → ER 12:50
DX: N83.9 Noninflammatory disorder of ovary, fallopian tube and broad ligament, unspecified (principal); N83.512 Torsion of left ovary and ovarian pedicle; E66.9 Obesity, unspecified; F41.9 Anxiety disorder, unspecified; F32.9 Major depressive disorder, single episode, unspecified; F17.210 Nicotine dependence, cigarettes, uncomplicated; Z68.38 Body mass index [BMI] 38.0-38.9, adult
CPT/HCPCS: 36415; 74176; 80053; 81000; 84703; 85025

== ENCOUNTER 2022-02-21 22:43 | Emergency (ER) | payer SELFPAY ==
[~2022-02-21] VITALS: Ht 160 cm; Wt 98.0 kg
[~2022-02-21 22:43] MED LIST changes: +BUPR150T24 PO; -BUPR150T7 PO
--- NOTE | 2022-02-21 23:04 | ED Lower Extremity ---
General Stated Complaint: R FOOT PAIN Source: patient Exam Limitations: no limitations History of Present Illness Date Seen by Provider: February 21, 2022 Time Seen by Provider: 22:51 Initial Comments Patient and her significant other present to the ER by private conveyance with chief complaint of pain for 3 days in her right foot after going for a long walk. She denies any fall or trauma. She has not had problems with her foot before. She says the pain to the dorsum of her foot top and lateral and radiates back to her ankle. Worse with bearing weight but she is able to bear weight on it. No numbness or tingling. She says is little bit swollen compared to her left. She has not seen anyone for it, [facility] She has been using ibuprofen, Biofreeze and Epson salt baths. Allergies and Home Medications Allergies Coded Allergies: Cas Known Allergies (Unverified Allergy, Mild, 02/08/09) Patient Home Medication List Home Medication List Reviewed: Yes Amitriptyline HCl (Amitriptyline HCl) 50 Mg Tablet, 50 MG PO HS, (Reported) Entered as Reported by: KATLIN MARIN on 11/23/17 1007 Bupropion HCl (Wellbutrin Xl) 300 Mg Tab.er.24h, 300 MG PO DAILY, (Reported) Entered as Reported by: KATLIN MARIN on 11/23/17 1003 Bupropion HCl (Bupropion Xl) 150 Mg Tab.er.24h, 150 MG PO DAILY, (Reported) Entered as Reported by: KATLIN MARIN on 11/23/17 1017 Docusate Sodium (Docusate Sodium) 100 Mg Capsule, 100 MG PO BID Prescribed by: ELOISA LEIGH on 12/23/17 0816 Ibuprofen (Ibuprofen) 800 Mg Tablet, 800 MG PO Q6H Prescribed by: ELOISA LEIGH on 12/23/17 0816 Oxycodone HCl/Acetaminophen (Oxycodone-Acetaminophen 10-325) 1 Each Tablet, 1-2 TAB PO Q4HR PRN for PAIN-MODERATE TO SEVERE Prescribed by: ELOISA LEIGH on 12/23/17 0816 Polyethylene Glycol 3350 (Miralax) 119 Gm Powder, 17 GM PO DAILY, (Reported) Entered as Reported by: KATLIN MARIN on 11/23/17 1017 Review of Systems Constitutional: No chills, No diaphoresis EENTM: No ear discharge, No ear pain Respiratory: No cough, No short of breath Cardiovascular: No chest pain, No palpitations Gastrointestinal: No abdominal pain, No constipation, No diarrhea Genitourinary: No discharge, No dysuria All Other Systems Reviewed Negative Unless Noted: Yes Past Ospuwhf-Wmqsfc-Nbnpmw Hx Patient Social History Tobacco Use?: No Use of E-Cig and/or Vaping dev: No Substance use?: No Seasonal Allergies Seasonal Allergies: No Past Medical History Surgeries: Yes (HERNIA REAPAIR, LEEP) Gallbladder Respiratory: No Cardiac: Yes (MVP) Heart Murmur Neurological: No Reproductive Disorders: Yes (DUI) Sexually Transmitted Disease: Yes (HPV) Gastrointestinal: Yes Chronic Constipation Musculoskeletal: No Endocrine: No Cancer: No Psychosocial: Yes Anxiety, Depression Integumentary: No Blood Disorders: No Physical Exam Vital Signs Vital Signs - First Documented 02/21/22 22:52 Temp 36.6 Pulse 88 Resp 16 B/P (MAP) 114/60 (78) Pulse Ox 96 O2 Delivery Room Air Capillary Refill : Height, Weight, BMI Height: 5'2.00" Weight: 210lbs. 0.0oz. 95.568759ji; 38.00 BMI Method:Stated General Appearance: WD/WN, no apparent distress HEENT: PERRL/EOMI, pharynx normal Neck: full range of motion, normal inspection Cardiovascular: normal peripheral pulses, regular rate, rhythm Respiratory: no respiratory distress, no accessory muscle use Ankles: bilateral ankle non-tender, bilateral ankle normal inspection, bilateral ankle normal range of motion, bilateral ankle no evidence of injury Neurologic/Psychiatric: no motor/sensory deficits, alert, normal mood/affect, oriented x 3 Skin: normal color, warm/dry Progress/Results/Core Measures Results/Orders My Orders Orders - KRISTINE LUA Foot, Right, 3 View (02/21/22 22:56) Ketorolac Injection (Toradol Injection) (02/22/22 00:00) Vital Signs/I&O 02/21/22 02/22/22 22:52 00:10 Temp 36.6 Pulse 88 82 Resp 16 16 B/P (MAP) 114/60 (78) 116/66 Pulse Ox 96 97 O2 Delivery Room Air Room Air Progress Progress Note #1: Time: 23:14 Progress Note Stress fracture versus ligamentous injury. Plain films, Toradol and follow-up with podiatry. Progress Note #2: Time: 23:50 Progress Note Regimen of NSAIDs and follow-up with either physical therapy or podiatry. We put her in a boot. Diagnostic Imaging Diagonstic Imaging: Xray Plain Films/CT/US/NM/MRI: other Comments No overt osseous fracture or dislocation on 3 view foot plain film. [facility] [place] NAME: JAREN SMITH [facility] REC#: [id number] PT STATUS: DEP ER : 1975 PHYSICIAN: KRISTINE LUA MD ADMIT DATE: 02/21/22/ER Signed Date of Exam:02/21/22 FOOT, RIGHT, 3 VIEW CLINICAL INDICATION: Patient right foot pain. EXAM: X-ray of the right foot, 3 views. Comparisons: None. FINDINGS: There is no acute fracture or dislocation. There is mild hallux valgus deformity noted. There are small spurs involving the 1st MTP joint. There are mild to moderately hypertrophic calcaneal spurs at the plantar and Achilles attachment. IMPRESSION: 1: There is no acute fracture or dislocation. 2: Mild hallux valgus deformity of the 1st MTP joint. 3: Hypertrophic calcaneal spurs. Dictated by: Dictated on workstation # [id number] Dict: 02/22/22 0641 Trans: 02/22/22 1203 [facility] [id number] Interpreted by: KAYE RENEE MD Electronically signed by: KAYE RENEE MD 02/22/22 1203 Reviewed: Reviewed by Me Departure Impression Primary Impression: Sprain or strain of foot Disposition: 01 HOME, SELF-CARE Condition: Stable Departure-Patient Inst. Decision time for Depature: 23:50 Referrals: [facility] (PCP/Family) Primary Care Physician Patient Instructions: Walking Boot Add. Discharge Instructions: Drink plenty of fluids. Naproxen 2 tablets twice a day for the next 1 to 2 weeks on a routine schedule to reduce inflammation and pain in your foot. Tylenol 1000 mg every 8 hours as needed for breakthrough pain. Topical creams such as icy hot, capsaicin oil or Voltaren apply directly to your foot as necessary for pain relief. Elevate your foot above the level of your heart when not in use to help reduce swelling and pain. Wear the boot except to sleep or bathe for the next 1 to 2 weeks. Follow-up with your primary care doctor if not seeing improvement in 1 to 2 weeks. Alternatively you may go to physical therapy or call the animation director for help. Physical therapy can be reached at [phone]. Work/School Note: Work Release Form Date Seen in the Emergency Department: February 21, 2022 Return to Work: February 22, 2022 Restrictions: Need Release from Doctor Other Restrictions Listed Below: Avoid prolonged walking or standing until 03/03/2022. Restrictions: May use the boot until 03/07/2022. KRISTINE LUA February 21, 2022 23:04
[2022-02-22] MEDS ORDERED: KETOROLAC 60 MG/2 ML VIAL IM ONE
[2022-02-22 00:10] VITALS: BP 116/66
--- NOTE | 2022-02-22 06:48 | Diagnostic Imaging Report ---
CLINICAL INDICATION: Patient right foot pain. EXAM: X-ray of the right foot, 3 views. Comparisons: None. FINDINGS: There is no acute fracture or dislocation. There is mild hallux valgus deformity noted. There are small spurs involving the 1st MTP joint. There are mild to moderately hypertrophic calcaneal spurs at the plantar and Achilles attachment. IMPRESSION: 1: There is no acute fracture or dislocation. 2: Mild hallux valgus deformity of the 1st MTP joint. 3: Hypertrophic calcaneal spurs. Dictated by: Dictated on workstation # [id number]
== END 2022-02-22 00:09 | disposition home or self-care (01) ==
LOC: EDUNIT# 22:43 → ER 22:45
DX: M79.671 Pain in right foot (principal)
CPT/HCPCS: 73630

== ENCOUNTER 2022-09-17 02:21 | Emergency (ER) | payer SELFPAY ==
--- NOTE | 2022-09-17 04:36 | ED Lower Extremity ---
General Chief Complaint: Lower Extremity Stated Complaint: LEFT FOOT STIFF Nursing Triage Note: PT ARRIVAL TO ER VIA PRIVATE VEHICLE FROM HOME WITH COMPLAINT OF LEFT ANKLE PAIN X3 DAYS. PT ABLE TO WALK WITHOUT DIFFICULTY. PATIENT STATES NO TRAUMA OR OBVIOUS INJURY. HURT AFTER WAKING UP MONDAY. PT REQUESTING WORK NOTE FOR TODAY. Source: patient Exam Limitations: no limitations History of Present Illness Date Seen by Provider: Sep 17, 2022 Time Seen by Provider: 03:44 Initial Comments This 46-year-old woman presents to the emergency room with complaints of pain in the distal left mid foot. Monday when she got out of bed it felt "funny". She rested and took ibuprofen and soaked in Epson salt. She has ingrown toenails previously on the left great toe but that does not seem to be a problem at this time. She took ibuprofen tonight but states she is still having pain that is prohibiting her from walking normally. She denies any traumatic injury. She has not had this problem before on the left foot. Couple months ago she did have a similar pain in the right foot that dissipated on its own. She denies any history of neuropathy or diabetes. Allergies and Home Medications Allergies Coded Allergies: NKANo Known Allergies (Unverified Allergy, Mild, 02/08/09) Patient Home Medication List Home Medication List Reviewed: Yes Amitriptyline HCl (Amitriptyline HCl) 50 Mg Tablet, 50 MG PO HS, (Reported) Entered as Reported by: KATLIN MARIN on 11/23/17 1007 Bupropion HCl (Wellbutrin Xl) 300 Mg Tab.er.24h, 300 MG PO DAILY, (Reported) Entered as Reported by: KATLIN MARIN on 11/23/17 1003 Bupropion HCl (Bupropion Xl) 150 Mg Tab.er.24h, 150 MG PO DAILY, (Reported) Entered as Reported by: KATLIN MARIN on 11/23/17 1017 Docusate Sodium (Docusate Sodium) 100 Mg Capsule, 100 MG PO BID Prescribed by: ELOISA LEIGH on 12/23/17 0816 Gabapentin (Neurontin) 300 Mg Capsule, 300 MG PO BID PRN for PAIN-BREAKTHROUGH Prescribed by: BRIEN MATUTE on 09/17/22 0439 Ibuprofen (Ibuprofen) 800 Mg Tablet, 800 MG PO Q6H Prescribed by: ELOISA LEIGH on 12/23/17 0816 Oxycodone HCl/Acetaminophen (Oxycodone-Acetaminophen 10-325) 1 Each Tablet, 1-2 TAB PO Q4HR PRN for PAIN-MODERATE TO SEVERE Prescribed by: ELOISA LEIGH on 12/23/17 0816 Polyethylene Glycol 3350 (Miralax) 119 Gm Powder, 17 GM PO DAILY, (Reported) Entered as Reported by: KATLIN MARIN on 11/23/17 1017 Review of Systems Constitutional: no symptoms reported EENTM: no symptoms reported Respiratory: no symptoms reported Cardiovascular: no symptoms reported Gastrointestinal: no symptoms reported Genitourinary: no symptoms reported : No Musculoskeletal: see HPI Skin: no symptoms reported Psychiatric/Neurological: See HPI Past Nbpfxmx-Jabndn-Gvjicv Hx Patient Social History Tobacco Use?: Yes Tobacco type used: Cigarettes Smoking Status: Current Everyday Smoker Use of E-Cig and/or Vaping dev: No Substance use?: No Alcohol Use?: No Pt feels they are or have been: No Immunizations Up To Date Influenza Vaccine Up-to-Date: No; Not Current First/Initial COVID19 Vaccinat: N/A Second COVID19 Vaccination Darryn: N/A Third COVID19 Vaccination Date: N/A Seasonal Allergies Seasonal Allergies: No Past Medical History Surgeries: Yes (HERNIA REAPAIR, LEEP, vaginal reconstruction) Bladder Surgery, Gallbladder, Hysterectomy Respiratory: No Cardiac: Yes (MVP) Heart Murmur, Hypertension Neurological: No Reproductive Disorders: Yes (DUI) Sexually Transmitted Disease: Yes (HPV) Gastrointestinal: Yes Chronic Constipation Musculoskeletal: No Endocrine: Yes (Vitamin D deficiency) Cancer: No Psychosocial: Yes Anxiety, Depression Integumentary: No Blood Disorders: No Physical Exam Vital Signs Vital Signs - First Documented 09/17/22 02:40 Temp 36.9 Pulse 87 Resp 18 B/P (MAP) 147/89 (108) Pulse Ox 99 O2 Delivery Room Air Capillary Refill : Less Than 3 Seconds Height, Weight, BMI Height: 5'2.00" Weight: 210lbs. 0.0oz. [id number]; 38.00 BMI Method:Stated General Appearance: WD/WN, no apparent distress, obese HEENT: normal ENT inspection Ankles: left ankle non-tender, left ankle normal inspection, left ankle normal range of motion Feet: left foot other (Left foot is normal to inspection. She has decreased plantarflexion of the toes due to pain. She has a numbness sensation on the dorsal aspect of the distal midfoot and tenderness on the plantar aspect.) Neurologic/Tendon: normal motor functions, normal tendon functions Neurologic/Psychiatric: no motor/sensory deficits, alert, normal mood/affect, oriented x 3 Skin: normal color, warm/dry Progress/Results/Core Measures Results/Orders Lab Results Laboratory Tests Test 09/17/22 03:57 Range/Units Glucometer 142 H 70-110 MG/DL My Orders Orders - BRIEN ESTRADA MD Accucheck Stat ONCE (09/17/22 03:54) Foot, Left, 3 Views (09/17/22 04:01) Gabapentin Capsule/Tablet (Neurontin Cap (09/17/22 04:45) Medications Given in ED Current Medications Medications Dose Ordered Sig/Charlene Route Start Time Stop Time Status Last Admin Dose Admin Gabapentin 300 mg ONCE ONCE PO 09/17/22 04:45 09/17/22 04:46 DC 09/17/22 04:45 300 MG Vital Signs/I&O 09/17/22 09/17/22 02:40 04:41 Temp 36.9 Pulse 87 81 Resp 18 18 B/P (MAP) 147/89 (108) 139/85 Pulse Ox 99 99 O2 Delivery Room Air Room Air Blood Pressure Mean: 108 FSBG Bedside Testing Finger Stick Blood Glucose: 142 Blood Glucose Action Taken: Physician notified Progress Progress Note : Progress Note Exam and history does not fit with any particular pathology. Based on the history of similar symptoms on the right previously and this unusual combination of numbness and pain without trauma, I believe she may have some neuropathy. Fingerstick blood sugar was unremarkable. She was treated with gabapentin and prescription was provided. She requested a note for work. I did inform her that without any identifiable pathology and note for work on [employer] may cause her problems. She requested the note anyway stating that she was frustrated that she could not walk properly to work. See discharge instructions for further discussion. Diagnostic Imaging Diagonstic Imaging: Xray Plain Films/CT/US/NM/MRI: other (Left foot) Comments Left foot x-rays viewed by me and report reviewed. See report below: NAME: JAREN SMITH [employer] REC#: [id number] PT STATUS: DEP ER : [id number] PHYSICIAN: BRIEN ESTRADA MD ADMIT DATE: 09/17/22/ER Draft Date of Exam:09/17/22 FOOT, LEFT, 3 VIEWS CLINICAL INDICATION: Patient with left foot pain. EXAM: X-ray of the left foot, 3 views. COMPARISON: None. FINDINGS: There is no acute fracture or dislocation. There are small spurs involving the 1st MTP joint. There are mild hypertrophic calcaneal spurs at the plantar and Achilles attachment. IMPRESSION: There is no acute fracture or dislocation. Dictated on workstation # [id number] Dict: 09/17/22 0554 Trans: 09/17/22 0601 GORDON [id number] Interpreted by: KAYE RENEE MD Departure Impression Primary Impression: Left foot pain Disposition: HOME, SELF-CARE Condition: Stable Departure-Patient Inst. Referrals: ROB HOANG DO (PCP/Family) Primary Care Physician Patient Instructions: Neuropathic Pain Add. Discharge Instructions: For your pain you may take ibuprofen up to 600 mg every 6 hours and/or Tylenol (acetaminophen) up to 1000 mg every 6 hours as needed for pain. Add gabapentin (Neurontin) as prescribed for pain not controlled by [id number]-[id number]-[id number] medications. Please note gabapentin may cause drowsiness so do not drive or operate machinery after taking it. Please follow-up with your primary care provider and/or aircraft painter as soon as possible for further evaluation as your work-up in the ER and your exam in the ER do not clearly explain the reasons for your pain. You may use a walking boot and/or crutches to prevent aggravating the pain as needed. Return to care if you have worsening symptoms despite following these instructions. All discharge instructions reviewed with patient and/or family. Voiced understanding. Scripts Gabapentin (Neurontin) 300 Mg Capsule 300 MG PO BID PRN for PAIN-BREAKTHROUGH, #10 CAP Prov: BRIEN ESTRADA MD 09/17/22 Work/School Note: Work Release Form Date Seen in the Emergency Department: Sep 17, 2022 Return to Work: Sep 19, 2022 Restrictions: No Restrictions Copy Copies To 1: ROB HOANG JOSHUA T MD Sep 17, 2022 04:36
[2022-09-17] MEDS ORDERED: GABA300C PO (04:39)
[2022-09-17 04:41] VITALS: BP 139/85
[2022-09-17] MEDS ORDERED: GABAPENTIN 300 MG (NEURONTIN) CAP PO ONE (04:45)
--- NOTE | 2022-09-17 06:02 | Diagnostic Imaging Report ---
CLINICAL INDICATION: Patient with left foot pain. EXAM: X-ray of the left foot, 3 views. COMPARISON: None. FINDINGS: There is no acute fracture or dislocation. There are small spurs involving the 1st MTP joint. There are mild hypertrophic calcaneal spurs at the plantar and Achilles attachment. IMPRESSION: There is no acute fracture or dislocation. Dictated by: Dictated on workstation # [id number]
== END 2022-09-17 04:48 | disposition home or self-care (01) ==
LOC: EDUNIT# 02:21 → ER 02:28
DX: M79.672 Pain in left foot (principal); F17.210 Nicotine dependence, cigarettes, uncomplicated; Z28.310 Unvaccinated for COVID-19
CPT/HCPCS: 73630; 82947